=== PATIENT | male | born 1960 | race Caucasian/White ===

== ENCOUNTER 2022-07-25 02:57 | Observation (INO) | payer OTHER ==
[~2022-07-25] VITALS: Ht 182.9 cm; Wt 124.3 kg
[2022-07-25 03:38] LABS: BASOPHILS ABSOLUTE AUTO 0.05 K/mm3 (0.00-0.23); BASOPHILS PERCENT AUTO 1 % (0-2); EOSINOPHILS ABSOLUTE AUTO 0.19 K/mm3 (0.00-0.68); EOSINOPHILS PERCENT AUTO 2 % (0-6); Hematocrit 43.5 % (37.0-53.0); Hemoglobin 14.9 g/dL (13.5-17.5); IMMATURE GRAN ABSOLUTE AUTO 0.02 K/mm3 (0.00-0.10); IMMATURE GRAN PERCENT AUTO 0 % (0-1); LYMPHOCYTES ABSOLUTE AUTO 1.35 K/mm3 (0.84-5.20); LYMPHOCYTES PERCENT AUTO 15 % (21-46); MONOCYTES ABSOLUTE AUTO 0.39 K/mm3 (0.16-1.47); MONOCYTES PERCENT AUTO 4 % (4-13); Mean Corpuscular HGB 30.5 pg (26.0-34.0); Mean Corpuscular HGB Conc 34.3 g/dL (31.5-36.5); Mean Corpuscular Volume 89 fL (80-100); Mean Platelet Volume 9.2 fL (9.1-12.4); NEUTROPHILS ABSOLUTE AUTO 7.29 K/mm3 (1.96-9.15); NEUTROPHILS PERCENT AUTO 79 % (41-73); Platelet Count 231 K/mm3 (150-400); RDW Coefficient Variation 12.3 % (11.7-14.2); RDW Standard Deviation 40.4 fL (35.1-46.3); Red Blood Cell Count 4.88 M/mm3 (4.30-5.90); White Blood Cell Count 9.29 K/mm3 (4.00-11.30)
[2022-07-25 03:55] LABS: Bun/Creatinine Ratio 12.6 (12.0-20.0); Calcium, Blood 9.2 mg/dL (8.5-10.1); Creatinine, Blood 0.87 mg/dL (0.60-1.20); Potassium, Blood 4.3 mmol/L (3.5-5.5)
[2022-07-25 05:52] LABS: Anti-Xa UFH, PHA Monitoring <0.10 IU/mL; Prothrombin Time Results 10.5 Sec (9.7-11.5)
[2022-07-25 06:40] LABS: CHOL/HDL RATIO 2.9; Cholesterol 228 mg/dL (50-200); HDL Cholesterol 79 mg/dL (>39); LDL/HDL RATIO 1.8; Low Density Lipoprotein Chol 141 mg/dL (0-110); Triglycerides 39 mg/dL (30-160); Very Low Density Lipoprot Chol 7 mg/dL (6-32)
--- NOTE | 2022-07-25 07:17 | NUR ---
TX OF CARE REPORT OBTAINED FROM NEDA HERRERA IN THE ED. PT ADMITTED TO PCU ABOUT 0650 THIS AM. HE WAS ORIENTED TO THE ROOM, VS TAKEN, FALL PREVENTIONS PUT IN PLACE, AND HEP GTT VERIFIED W/ TAMARA HERRERA. DAY SHIFT NURSE CAME IN AT ABOUT 0655 AND REPORT WAS GIVEN TO DEAN HERRERA.
--- NOTE | 2022-07-25 10:00 | NUR ---
PT IS TRANSPORTED TO [facility] FOR ANGIOGRAM. TELEMETRY NOTIFIED.
--- NOTE | 2022-07-25 11:15 | NUR ---
PT RETURNED FROM [facility], HE HAS A RADIAL ACCESS SITE IN THE RIGHT WRIST WITH A TR PRESSURE BAND IN PLACE WITH 13ML OF AIR INFLATED IN THE PRESSURE CUFF. PT'S VSS. ROOM AIR. DIET ADVANCED TO CARDIAC. DENIES NUMBNESS OR TINGLING IN RIGHT HAND. NO SIGNS OF BLEEDING, OOZING OR BRUISING ON RIGHT HAND/WRIST. PT DENIES CHEST PAIN OR CHEST DISCOMFORT. RN WILL CONTINUE TO MONITOR VSS AND RADIAL ACCESS SITE.
--- NOTE | 2022-07-25 13:07 | NUR ---
PER VERBAL REPORT FROM [facility] DESK CLERK RN, CARDIOLOGY WANTS HEPARIN DRIP RESTARTED AFTER TR BAND IS REMOVED.
--- NOTE | 2022-07-25 14:00 | NUR ---
RN REMOVED 2ML OF AIR FROM AIR CUFF ON THE TR BAND. PT DENIES NUMBNESS/TINGLING, NO DRAINAGE AT PUNCTURE SITE, DENIES CHEST PAIN. RN WILL CONTINUE TO MONITOR.
--- NOTE | 2022-07-25 14:20 | NUR ---
RN REMOVED 2 ML OF AIR FROM TR BAND CUFF. NO DRAINAGE, BRUISING NOTED AT PUNCTURE SITE. SITE REMAINS SOFT. DENIES NUMBNESS/TINGLING. VSS. DENIES CHEST PAIN OR PRESSURE.
--- NOTE | 2022-07-25 14:55 | NUR ---
RN REMOVED 2ML OF AIR FROM PT'S TR BAND. SITE REMAINS SOFT. NO DRAINAGE NOTED AT PUNCTURE SITE. PT DENIES CHEST PRESSURE OR DISCOMFORT. RN WILL CONTINUE TO MONITOR.
--- NOTE | 2022-07-25 16:00 | NUR ---
RN REMOVED 3ML FROM PT'S TR BAND ON RIGHT ARM. NO DRAINAGE NOTED AT PUNCTURE SITE. NO BRUISING, DENIES NUMBNESS/TINGLING, DENIES CHEST PRESSURE OR PAIN AT THIS TIME. VSS. RN WILL MONITOR FOR ONE ADDITIONAL HOUR.
--- NOTE | 2022-07-25 18:19 | NUR ---
HEPARIN RESTARTED. RN CALLED PHARMACY TO VERIFY THAT WE ARE RE-STARTING DOSE AT 15U/KG/HR, 29.1ML/HR. PHARMACIST GREGG VERIFIED THE STARTING DOSE. RN VERIFIED STARTING DOSE WITH JAVIER PEREZ.
--- NOTE | 2022-07-25 18:28 | NUR ---
RECEIVED PHONE CALL FROM PHARMACY MICHAELA, SHE IS PLANNING TO DECREASE HEPARIN RANGE BECAUSE PT IS RECENTLY RETURNED FROM [facility].
--- NOTE | 2022-07-25 19:49 | NUR ---
PT IS A&O X4. HAD ANGIOGRAM DONE, AND NOW PLANS FOR CABG. DR. NELSON AT [facility] HAS ACCEPTED PT WHEN A BED IS AVAILABLE. PT'S BROTHER AND FRIENDS AT BEDSIDE TODAY. PT INDEPENDENT IN ROOM, CONTINENT. IV ACCESS TO LEFT AC AND RIGHT HAND. TR BAND MONITORED THROUGH THE SHIFT. AT PUNCTURE SITE, THERE IS NO DRAINAGE AND CURRENTLY COVERED WITH A CLEAR TEGADERM. USES CALL LIGHT APPROPRIATELY. RN GAVE REPORT TO ONCOMING NURSE.
--- NOTE | 2022-07-26 06:39 | NUR ---
SHIFT SUMMARY PATIENT ALERT AND ORIENTED X4, INDEPENDENT IN HIS ROOM. VITAL SIGNS STABLE. LUNG SOUNDS CLEAR T/O. PATIENT DENIES HAVING ANY CHEST PAIN OR PRESSURE. SINUS RHYTHM ON TELEMETRY. RIGHT RADIAL SITE COVERED WITH CLEAR DRESSING, NO BRUSING, SWELLING, OR BLEEDING NOTED. ARM BOARD IN PLACE. NO ACUTE ISSUES NOTED OVERNIGHT. CALL LIGHT WITHIN REACH.
[2022-07-26 09:21] LABS: SARS-Cov-2 (COVID-19) PCR, MMC NEGATIVE (NEGATIVE)
--- NOTE | 2022-07-26 09:44 | NUR ---
CARE ASSUMPTION/TRANSFER THIS RN ASSUMED CARE AT 0700. VSS. TELE SR 70S. PATIENT IS ALERT AND ORIENTED X4. PATIENT REPORTS NO PAIN. PATIENT REPORTS NO SHORTNESS OF BREATH. PATIENT REPORTS NO CHEST PAIN/PRESSURE. PATIENT HAS A RIGHT RADIAL SITE FROM ANGIO YESTERDAY. SITE IS CLEAN DRY AND INTACT. NO BRUISING REDDNESS SWELLING OR BLEEDING. OTHERWISE SKIN IS CLEAN DRY AND INTACT. ABD IS SOFT ACTIVE NONTENDER. SEE SHIFT ASSESSMENT FOR FURTHER DETIALS. PATIENT IS INDEPDENT IN THE ROOM AND IN ADLS. PATIENT HAS A BED AT [facility]. THIS RN GAVE REPOR TO NAYLA HERRERA AT [facility] AT 0843. PATIENT LEFT AT 0835 WITH [facility] TO BE TRANSFERD TO [facility]. PATIENT LEFT IN NO DISTRESS. PATIENT LEFT WITH ALL BELONGINGS. PATIENT LEFT WITH HEPARIN DRIP INFUSING AT 14U/KG/HR RATE 27.2.
== END 2022-07-26 08:45 | disposition short-term general hospital (02) ==
LOC: ER 02:57 → PCU 02:58
PROVIDERS: Internal Medicine; Student in an Organized Health Care Education/Training Program; ADMIT Internal Medicine
DX: I21.4 Non-ST elevation (NSTEMI) myocardial infarction (principal); I25.10 Atherosclerotic heart disease of native coronary artery without angina pectoris; E78.5 Hyperlipidemia, unspecified; R73.9 Hyperglycemia, unspecified; R03.0 Elevated blood-pressure reading, without diagnosis of hypertension; E66.3 Overweight; Z68.36 Body mass index [BMI] 36.0-36.9, adult; Z82.49 Family history of ischemic heart disease and other diseases of the circulatory system; Z79.899 Other long term (current) drug therapy; Z20.822 Contact with and (suspected) exposure to COVID-19
CPT/HCPCS: 36415; 71046; 76937; 80048; 80061; 84484; 85025; 85520; 85610; 93005; 93010; 93458; 96365; 96376; 99152; 99153; 99285-25; A9270; C1769; C1887; C1894; C8929; G0378; J1644; J2250; J3010; J7030; J7040; J7050; Q9957; Q9967; U0004

== ENCOUNTER 2022-10-27 17:37 | Emergency (ER) | payer OTHER ==
[~2022-10-27] VITALS: Ht 182.9 cm; Wt 117.9 kg
[2022-10-27 20:20] LABS: BASOPHILS ABSOLUTE AUTO 0.05 K/mm3 (0.00-0.23); BASOPHILS PERCENT AUTO 1 % (0-2); EOSINOPHILS ABSOLUTE AUTO 0.15 K/mm3 (0.00-0.68); EOSINOPHILS PERCENT AUTO 2 % (0-6); Hematocrit 38.9 % (37.0-53.0); Hemoglobin 13.2 g/dL (13.5-17.5); IMMATURE GRAN ABSOLUTE AUTO 0.01 K/mm3 (0.00-0.10); IMMATURE GRAN PERCENT AUTO 0 % (0-1); LYMPHOCYTES ABSOLUTE AUTO 1.77 K/mm3 (0.84-5.20); LYMPHOCYTES PERCENT AUTO 23 % (21-46); MONOCYTES ABSOLUTE AUTO 0.49 K/mm3 (0.16-1.47); MONOCYTES PERCENT AUTO 6 % (4-13); Mean Corpuscular HGB Conc 33.9 g/dL (31.5-36.5); Mean Corpuscular Volume 88 fL (80-100); Mean Platelet Volume 9.2 fL (9.1-12.4); NEUTROPHILS ABSOLUTE AUTO 5.21 K/mm3 (1.96-9.15); NEUTROPHILS PERCENT AUTO 68 % (41-73); Platelet Count 232 K/mm3 (150-400); RDW Coefficient Variation 12.6 % (11.7-14.2); RDW Standard Deviation 41.2 fL (35.1-46.3); White Blood Cell Count 7.68 K/mm3 (4.00-11.30)
[2022-10-27 20:34] LABS: C-Reactive Protein, High Sens. 2.05 mg/L (0.000-3.000)
[2022-10-27 20:46] LABS: Albumin, Blood 3.7 g/dL (3.4-5.0); Albumin/Globulin Ratio 0.9 (0.8-1.8); Bilirubin, Total 0.7 mg/dL (0.1-1.0); Bun/Creatinine Ratio 19.6 (12.0-20.0); Calcium, Blood 9.6 mg/dL (8.5-10.1); Creatinine, Blood 0.97 mg/dL (0.60-1.20); Globulin, Blood 3.9 g/dL (2.2-4.0); Total Protein, Blood 7.6 g/dL (6.4-8.2)
[2022-10-27 23:28] LABS: Body Fluid Crystals NEG (NEGATIVE)
[2022-10-27 23:30] VITALS: BP 135/76
[2022-10-27 23:34] LABS: WBC Count, Synovial Fluid 778 /mm3 (0-180)
[2022-10-28] LABS: RBC Count, Synovial Fluid 272 /mm3 (0-0)
[2022-10-28 00:01] LABS: Appearance, Synovial Fluid Hazy (Clear); Color, Synovial Fluid Yellow (None-P Yel)
[2022-10-28 01:06] LABS: Lymphs, Synovial Fluid 26 % (0-15); Monocytes/Macrophages, Synovia 65 % (0-65); Neutrophils, Synovial Fluid 8 % (0-24); Other Cells, Synovial Fluid 1 % (0-0)
== END 2022-10-28 00:04 | disposition home or self-care (01) ==
LOC: ER 17:37
PROVIDERS: Student in an Organized Health Care Education/Training Program
DX: M25.462 Effusion, left knee (principal)
CPT/HCPCS: 20610; 80053; 85025; 85651; 86141; 89051; 89060; 96374-59; 99283-25; J1885

== ENCOUNTER 2024-07-17 06:29 | Day surgery (SDC) | payer BC ==
[~2024-07-17] VITALS: Ht 182.9 cm; Wt 123.0 kg
[2024-07-17] VITALS (23 sets, daily range): BP systolic 103–160; BP diastolic 60–108
[~2024-07-17 06:29] MED LIST: ATOR40TA PO; Aspir 8181 MG PO; LISI5 PO; Lactated Ringer's 1,000 ML IV SCH
[2024-07-17] MEDS ORDERED: propofoL 40 ML IV ONE (07:04)
--- NOTE | 2024-07-17 07:10 | NUR ---
History, Chart, Medications and Allergies reviewed before start of procedure. Ambulatory in Day Surgery WITH [facility]. Patient States Post-Procedure ride home has been arranged WITH [employer]. Patient confirms NPO status and agrees with scheduled surgery.
--- NOTE | 2024-07-17 07:37 | NUR ---
07/17/24 0737 Jerrod Kirkland CONFIRMED AND REVIEWED H&P, MEDCICATIONS, ALLERGIES, MEDICAL HISTORY, RESPIRATORY HISTORY, VITAL SIGNS, 3-LEAD EKG, CONSENTS, AND PHYSICIAN ORDERS. PATIENT CONFIRMS NPO STATUS AND AGREES WITH SCHEDULED PROCEDURE. MONITOR INTACT WITH CONTINUOUS PULSE OXIMETRY, CAPNOGRAPHY, 3-LEAD EKG, INTERMITTENT BP. SUPPLEMENTAL O2 TO BE TITRATED THROUGHOUT PROCEDURE TO MAINTAIN O2 SATURATION ABOVE 90%. PATIENT DETERMINED TO BE ASA APPROPRIATE FOR PROPOFOL SEDATION PRIOR TO START OF PROCEDURE BY DR. ZENDEJAS
[2024-07-17] MEDS ORDERED: Midazolam HCl 1MG / ML 2ML Vial ONE (07:38)
--- NOTE | 2024-07-17 08:39 | NUR ---
Patient up to Ambulate independently. Gait steady. Discharge instructions reviewed with patient. Patient verbalizes understanding. Copy given to patient to take home, WELL S/O. Patient States Post-Procedure ride home has been arranged. Discharged via wheelchair to private car for ride home. PT DENIES PAIN, TOLERATING PO. REPORTS READY TO GO HOME.
== END 2024-07-17 08:39 | disposition home or self-care (01) ==
LOC: ORSCMMR 06:29 → ORD 07:30 → ORSCMMR 07:30
PROVIDERS: Internal Medicine Gastroenterology
PROC: 0DBK8ZX Excision of Ascending Colon, Via Natural or Artificial Opening Endoscopic, Diagnostic (ICD-10-PCS; principal; 2024-07-17 07:30)
PROC: 0DBN8ZX Excision of Sigmoid Colon, Via Natural or Artificial Opening Endoscopic, Diagnostic (ICD-10-PCS; principal; 2024-07-17 07:30)
DX: Z12.11 Encounter for screening for malignant neoplasm of colon (principal); D12.2 Benign neoplasm of ascending colon; D12.5 Benign neoplasm of sigmoid colon; K57.30 Diverticulosis of large intestine without perforation or abscess without bleeding; I25.10 Atherosclerotic heart disease of native coronary artery without angina pectoris; Z79.899 Other long term (current) drug therapy; Z79.82 Long term (current) use of aspirin
CPT/HCPCS: 88305; J2250; J2704; J7120